=== PATIENT | male | born 1985 | race African-American/Black ===

== ENCOUNTER 2020-05-25 18:23 | Emergency (ER) | payer OTHER ==
[~2020-05-25] VITALS: Ht 182.9 cm; Wt 74.8 kg
[2020-05-25] MEDS ORDERED: TIZANIDINE4 MG/1 TA1 PO (20:51)
[2020-05-25] MEDS ORDERED: IBUPROFEN 600600 M1 PO (20:52)
[2020-05-25 21:07] VITALS: BP 129/81
== END 2020-05-25 21:13 | disposition home or self-care (01) ==
LOC: ER 18:23
DX: S16.1XXA Strain of muscle, fascia and tendon at neck level, initial encounter (principal); M25.571 Pain in right ankle and joints of right foot; M25.511 Pain in right shoulder; M54.9 Dorsalgia, unspecified; J45.909 Unspecified asthma, uncomplicated; F17.210 Nicotine dependence, cigarettes, uncomplicated; Z98.2 Presence of cerebrospinal fluid drainage device; V89.2XXA Person injured in unspecified motor-vehicle accident, traffic, initial encounter; Y93.89 Activity, other specified; Y92.488 Other paved roadways as the place of occurrence of the external cause; Y99.8 Other external cause status

== ENCOUNTER 2020-11-26 21:49 | Emergency (ER) | payer OTHER ==
[~2020-11-26] VITALS: Ht 182.9 cm; Wt 77.1 kg
[~2020-11-26 21:49] MED LIST: IBUPROFEN 600600 M1 PO; TIZANIDINE4 MG/1 TA1 PO
[2020-11-26 23:25] VITALS: BP 124/82
== END 2020-11-26 23:26 | disposition home or self-care (01) ==
LOC: ER 21:49
DX: K29.70 Gastritis, unspecified, without bleeding (principal); J45.909 Unspecified asthma, uncomplicated; F17.210 Nicotine dependence, cigarettes, uncomplicated; Z79.1 Long term (current) use of non-steroidal anti-inflammatories (NSAID); Z79.899 Other long term (current) drug therapy; Z91.013 Allergy to seafood

== ENCOUNTER 2020-12-05 02:53 | Emergency (ER) | payer OTHER ==
[~2020-12-05] VITALS: Ht 182.9 cm; Wt 77.1 kg
[2020-12-05 03:35] LABS: HEMATOCRIT 45.6 % (42.0-52.0); HEMOGLOBIN 14.8 gm/dL (14.0-18.0); MCHC 32.5 g/dL (28.0-37.0); MCV 86.1 fL (80.0-100.0); RBC 5.29 mil/uL (4.50-6.00); RDW 14.1 % (10.5-14.5); WBC 6.1 thou/uL (4.0-11.0)
[2020-12-05 03:42] LABS: ANION GAP 12 mmol/L (7-16); BUN 10 mg/dL (7-18); CALCIUM 9.4 mg/dL (8.5-10.1); CHLORIDE 101 mmol/L (98-107); CO2 28 mmol/L (21-32); CREATININE 1.2 mg/dL (0.7-1.3); GLUCOSE 77 mg/dL (74-106); POTASSIUM 3.7 mmol/L (3.5-5.1); SODIUM 141 mmol/L (136-145)
[2020-12-05 03:52] LABS: ALBUMIN 3.9 g/dL (3.4-5.0); SGOT 19 U/L (15-37); SGPT 31 U/L (16-63); TOTAL BILIRUBIN 0.4 mg/dL (0.2-1.0); TOTAL PROTEIN 7.6 g/dL (6.4-8.2); TROPONIN-I <0.06 ng/mL (<0.06)
[2020-12-05 04:35] VITALS: BP 124/74
--- NOTE | 2020-12-05 07:28 | EKG ---
[facility] [employer] [place] [address] ELECTROCARDIOGRAM REPORT Name: RIVERA LLOYD Room #: DEP JOSE Iglesias#: [id number] Admission: 12/05/20 Attend Phys: Discharge: 12/05/20 Date of : 83 Report #: [id number] [facility] Test Date: 2020-12-05 Test Time: 02:59:48 Pat Name: RIVERA LLOYD Department: Room: Gender: M Certified Physical Therapist Assistant: MPACHILANGO : 1985 Requested By: Lore Pearson Order Number: [id number] MD: Faizan Ga Measurements Intervals [place] Rate: 74 P: 45 [place]: 142 QRS: -40 QRSD: 109 T: 27 QT: 359 QTc: 399 Interpretive Statements Sinus rhythm Left axis deviation Abnormal R-wave progression, early transition Minimal ST elevation, lateral leads No previous ECG available for comparison Electronically Signed On 12-05-2020 7:27:57 CDT by Faizan Ga [email or web address] <ELECTRONICALLY SIGNED> By: Faizan Ga MD, [facility] 12/05/20 0727 [id number] Faizan Ga MD, FACC /EPI
[2020-12-05] MEDS ORDERED: OMEPRAZOLE 20 M20 M1 PO (22:09)
[2020-12-05] MEDS ORDERED: CARAFATE 1 GM TA1 G1 PO (22:09)
== END 2020-12-05 04:38 | disposition home or self-care (01) ==
LOC: ER 02:53
PROVIDERS: Student in an Organized Health Care Education/Training Program
DX: R07.9 Chest pain, unspecified (principal); J45.909 Unspecified asthma, uncomplicated; F17.210 Nicotine dependence, cigarettes, uncomplicated; Z91.013 Allergy to seafood

== ENCOUNTER 2020-12-05 21:29 | Emergency (ER) | payer OTHER ==
[~2020-12-05] VITALS: Ht 182.9 cm; Wt 77.1 kg
[2020-12-05] MEDS ORDERED: OMEPRAZOLE 20 M20 M1 PO (22:09)
[2020-12-05] MEDS ORDERED: CARAFATE 1 GM TA1 G1 PO (22:09)
[2020-12-05 22:19] VITALS: BP 145/83
== END 2020-12-05 22:21 | disposition home or self-care (01) ==
LOC: ER 21:29
DX: K21.9 Gastro-esophageal reflux disease without esophagitis (principal); J45.909 Unspecified asthma, uncomplicated; F17.210 Nicotine dependence, cigarettes, uncomplicated; Z91.013 Allergy to seafood

== ENCOUNTER 2020-12-08 05:28 | Emergency (ER) | payer OTHER ==
[~2020-12-08] VITALS: Ht 182.9 cm; Wt 66.7 kg
[~2020-12-08 05:28] MED LIST changes: +CARAFATE 1 GM TA1 G1 PO; +OMEPRAZOLE 20 M20 M1 PO
[2020-12-08 07:19] LABS: AMP/METHAMP POSITIVE (Negative); BARBITURATES Negative (Negative); BENZODIAZEPINES Negative (Negative); COCAINE POSITIVE (Negative); METHADONE Negative (Negative); OPIATES Negative (Negative); PCP Negative (Negative)
[2020-12-08 07:23] LABS: ABSOLUTE NEUTROPHILS 9.2 thou/uL (1.4-8.2); BASOPHILS 0.5 % (0.0-2.0); EOSINOPHILS 0.2 % (0.0-3.0); HEMOGLOBIN 14.7 gm/dL (14.0-18.0); LYMPHOCYTES 11.5 % (24.0-44.0); MCH 29.1 pg (26.0-34.0); MCHC 34.2 g/dL (28.0-37.0); MCV 85.1 fL (80.0-100.0); MONOCYTES 3.2 % (1.0-8.0); PLATELET COUNT 281 thou/uL (150-400); POLYS 84.6 % (36.0-66.0); RBC 5.05 mil/uL (4.50-6.00); RDW 14.2 % (10.5-14.5); WBC 10.9 thou/uL (4.0-11.0)
[2020-12-08 07:36] LABS: ANION GAP 10 mmol/L (7-16); BUN 11 mg/dL (7-18); CHLORIDE 102 mmol/L (98-107); CO2 27 mmol/L (21-32); GLUCOSE 103 mg/dL (74-106); POTASSIUM 4.5 mmol/L (3.5-5.1); SODIUM 139 mmol/L (136-145)
[2020-12-08 07:40] LABS: SALICYLATE 2.9 mg/dL (2.8-20.0)
[2020-12-08 10:00] VITALS: BP 135/74
== END 2020-12-08 10:00 | disposition home or self-care (01) ==
LOC: ER 05:28
PROVIDERS: Emergency Medicine
DX: F32.9 Major depressive disorder, single episode, unspecified (principal); F19.90 Other psychoactive substance use, unspecified, uncomplicated; J45.909 Unspecified asthma, uncomplicated; F15.10 Other stimulant abuse, uncomplicated; F17.210 Nicotine dependence, cigarettes, uncomplicated; Z91.013 Allergy to seafood